=== PATIENT | female | born 1950 | race Caucasian/White ===

== ENCOUNTER 2021-03-06 07:33 | Day surgery (SDC) | payer MEDICARE, OTHER ==
[~2021-03-06 07:33] MED LIST: B12 FAST DIS5000 MCG PO; CINNAMON500 MG PO; COQ10100 MG PO; HYDROCHLOROT25 MG PO; LEVOTHYROXIN50 MCG PO; MAGNESIUM400 M1 PO; NORVASC5 M1 PO; OMEGA-3 FISH1000 MG PO; POTASSIUM99 MG PO; ROSUVASTATIN CA20 MG PO; TURMERIC CURCUM1 CHW PO; VITAMIN D32000 UNI2 PO; ZINC50 M1 PO; ZYRTEC10 MG PO
[2021-03-06 09:57] VITALS: BP 128/76
== END 2021-03-06 10:17 | disposition home or self-care (01) ==
LOC: ENDO 07:33
PROVIDERS: ATTEND Surgery
PROC: 0DBM8ZX Excision of Descending Colon, Via Natural or Artificial Opening Endoscopic, Diagnostic (ICD-10-PCS; principal; 2021-03-06)
DX: Z12.11 Encounter for screening for malignant neoplasm of colon (principal); K63.5 Polyp of colon; K57.30 Diverticulosis of large intestine without perforation or abscess without bleeding; K64.8 Other hemorrhoids; K64.4 Residual hemorrhoidal skin tags; I10 Essential (primary) hypertension